=== PATIENT | male | born 1950 | race Hispanic/Latino ===

== ENCOUNTER 2018-10-13 08:47 | Day surgery (SDC) | payer MEDICARE, BC ==
[2018-10-08 16:33] VITALS: BMI 36.9
[2018-10-13] MEDS ORDERED: Sodium Chloride 0.9% 1,000 ML IV SCH (10:00)
[2018-10-13] MEDS ORDERED: Propofol 10 mg/ml Inj (20 ML) ONE (10:12)
[2018-10-13 13:17] VITALS: BP 133/77; RESP 16; TEMP 98
[2018-10-13 13:18] VITALS: PULSE 64; O2SAT 97
== END 2018-10-13 12:45 | disposition home or self-care (01) ==
LOC: ENDO 08:47
PROVIDERS: ATTEND Internal Medicine Gastroenterology
DX: K92.2 Gastrointestinal hemorrhage, unspecified (principal); K62.1 Rectal polyp; K57.30 Diverticulosis of large intestine without perforation or abscess without bleeding; K64.8 Other hemorrhoids; K21.9 Gastro-esophageal reflux disease without esophagitis; Z85.038 Personal history of other malignant neoplasm of large intestine; Z86.010 Personal history of colon polyps; Z90.49 Acquired absence of other specified parts of digestive tract; Z87.11 Personal history of peptic ulcer disease; E78.00 Pure hypercholesterolemia, unspecified; E78.5 Hyperlipidemia, unspecified; E11.9 Type 2 diabetes mellitus without complications; I25.10 Atherosclerotic heart disease of native coronary artery without angina pectoris; Z79.82 Long term (current) use of aspirin; Z80.0 Family history of malignant neoplasm of digestive organs
CPT/HCPCS: 45380; 88305; J2001; J2704; J7030; J7040